=== PATIENT | female | born 2000 | race Caucasian/White ===

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

== ENCOUNTER 2020-04-02 22:09 | Emergency (ER) | payer MEDICAID ==
[~2020-04-02] VITALS: Ht 180.3 cm; Wt 95.7 kg
[2020-04-02 22:14] VITALS: Ht 180.3 cm; Wt 95.7 kg
[2020-04-03 00:32] VITALS: BP 110/52
== END 2020-04-03 00:32 | disposition home or self-care (01) ==
LOC: ED 22:09
DX: M54.5 Low back pain (principal)